=== PATIENT | male | born 1975 | race Caucasian/White ===

== ENCOUNTER 2016-09-06 10:17 | Emergency (ER) | payer SELFPAY ==
[~2016-09-06] VITALS: Ht 185.4 cm; Wt 158.8 kg
[2016-09-06] MEDS ORDERED: TETANUS,DIPTH,PERTUSS P/F (BOOSTRIX) 0.5 ML VIAL IM ONE (11:00)
--- NOTE | 2016-09-06 11:40 | Diagnostic Imaging Report ---
INDICATION: Fall with right hand pain. AP, oblique, and lateral views of the right hand are obtained. No fracture or acute bony abnormality is seen. A radiopaque BB marker was placed over the location of previous soft tissue laceration. Otherwise there is no foreign body seen. Joint spaces are unremarkable. There is no destructive bony lesion. IMPRESSION: Negative right hand. Dictated by: Dictated on workstation # [id number]
[2016-09-06] MEDS ORDERED: LIDOCAINE 1% INJ 20 ML (XYLOCAINE) VIAL INJ ONE (11:45)
[2016-09-06] MEDS ORDERED: KETOROLAC 30 MG/ML VIAL IVP ONE (12:15)
[2016-09-06] MEDS ORDERED: CLINDAMYCIN 900 MG/50 ML IVPB 50 ML IV ONE (12:15)
[2016-09-06 12:19] LABS: BASOPHILS % (AUTO) 0 % (0-10); EOSINOPHILS # (AUTO) 0.2 10^3/uL (0.0-0.3); EOSINOPHILS % (AUTO) 2 % (0-10); LYMPHOCYTES # (AUTO) 2.4 X 10^3 (1.0-4.0); LYMPHOCYTES % (AUTO) 20 % (12-44); MEAN CORPUSCULAR HEMOGLOBIN 31 PG (25-34); MEAN CORPUSCULAR HGB CONC 36 G/DL (32-36); MEAN CORPUSCULAR VOLUME 86 FL (80-99); MEAN PLATELET VOLUME 11.3 FL (7.4-10.4); MONOCYTES # (AUTO) 0.7 X 10^3 (0.0-1.0); MONOCYTES % (AUTO) 6 % (0-12); NEUTROPHILS # (AUTO) 8.8 X 10^3 (1.8-7.8); NEUTROPHILS % (AUTO) 72 % (42-75); PLATELET COUNT 188 10^3/uL (130-400); RED CELL DISTRIBUTION WIDTH 12.8 % (10.0-14.5); WHITE BLOOD COUNT 12.2 10^3/uL (4.3-11.0)
[2016-09-06 12:37] LABS: ANION GAP 15 MMOL/L (5-14); BLOOD UREA NITROGEN 15 MG/DL (7-18); BUN/CREATININE RATIO 17; CALCIUM 9.9 MG/DL (8.5-10.1); CARBON DIOXIDE 23 MMOL/L (21-32); CHLORIDE 98 MMOL/L (98-107); CREATININE SERUM 0.88 MG/DL (0.60-1.30); GFR ESTIMATED > 60; GLUCOSE 272 MG/DL (70-105); POTASSIUM 4.5 MMOL/L (3.6-5.0); SODIUM 136 MMOL/L (135-145); hs C REACTIVE PROTEIN 0.88 MG/DL (0.00-0.50)
--- NOTE | 2016-09-06 13:12 | ED Upper Extremity ---
General Chief Complaint: Upper Extremity Stated Complaint: RIGHT HAND/PALM PAIN/KNOT Nursing Triage Note: Pt fell on a stair and landed on right hand over Xmas. 1 week later he noticed increased pain/swelling to right hand. Nursing Sepsis Screen: No Definite Risk Source: patient Exam Limitations: no limitations History of Present Illness Time seen by provider: 10:54 Initial Comments This 41-year-old gentleman presents to the emergency room with pain, swelling, and redness of the proximal right palmar region that has worsened over the last couple of days. He fell on stairs injuring his right hand around [place] time. The wound seemed to be healing fairly well until recent days. He has apparent abscess in this area. He denies any fever. There is stiffness and pain extending beyond the area of initial injury. 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 Allergies and Home Medications Allergies Coded Allergies: No Known Drug Allergies (Unverified , 09/06/16) Home Medications Hydrocodone/Acetaminophen 1 Each Tablet #14 1 EACH PO Q4H PRN PRN PAIN Prescribed by: SHERYL VICTOR on 09/07/16 1322 Metformin HCl 500 Mg Tablet #30 500 MG PO DAILY Take with your largest meal of the day Prescribed by: DANDY LEON on 09/06/16 1313 Minocycline HCl 100 Mg Capsule #10 100 MG PO BID Prescribed by: SHERYL VICTOR on 09/07/16 1322 Sulfamethoxazole/Trimethoprim 1 Each Tablet #30 1 EACH PO TID Pharmacist: Increased frequency due to patient's stature and location of infection Prescribed by: DANDY LEON on 09/06/16 1313 Constitutional: no symptoms reported EENTM: see HPI Respiratory: no symptoms reported Cardiovascular: no symptoms reported Gastrointestinal: no symptoms reported Genitourinary: no symptoms reported Musculoskeletal: see HPI Skin: see HPI Psychiatric/Neurological: No Symptoms Reported Past Qqytwpl-Clqpjt-Gugmwd Hx Patient Social History Alcohol Use: Denies Use Recreational Drug Use: No Smoking Status: Current Everyday Smoker Recent Foreign Travel: No Contact w/Someone Who Travel: No Recent Infectious Disease Expo: No Recent Hopitalizations: No Physical Abuse Screen: No Sexual Abuse: No Immunizations Up To Date Tetanus Booster (TDap): Unknown Surgeries HX Surgeries: No Respiratory Hx Respiratory Disorders: No Cardiovascular Hx Cardiac Disorders: No Neurological Hx Neurological Disorders: No Reproductive System Hx Reproductive Disorders: No Genitourinary Hx Genitourinary Disorders: No Gastrointestinal Hx Gastrointestinal Disorders: No Musculoskeletal Hx Musculoskeletal Disorders: No Endocrine Hx Endocrine Disorders: No HEENT HX ENT Disorders: No Cancer Hx Cancer: No Psychosocial Hx Psychiatric Problems: No Integumentary HX Skin/Integumentary Disorder: No Blood Transfusions Hx Blood Disorders: No Physical Exam Vital Signs Vital Sign - Last 12Hours 09/06/16 10:56 Temp 98.6 Pulse 70 Resp 16 B/P 173/104 Pulse Ox 98 Capillary Refill : Less Than 3 Seconds General Appearance: WD/WN mild distress HEENT: PERRL/EOMI normal ENT inspection pharynx normal Neck: normal inspection Cardiovascular: regular rate, rhythm no edema no murmur Respiratory: lungs clear normal breath sounds no respiratory distress no accessory muscle use Gastrointestinal: normal bowel sounds Wrist: Yes normal inspection, Yes limited ROM Hand: Right (There is a healing scar on the proximal half of the palmar surface. Just proximal to that is a swollen, erythematous, indurated, and tender region measuring about 2 x 3 cm. It does appear to have a fluctuant center. 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 1 cm incision was made over the abscess taking great care to avoid injuring deeper structures. Initially, no purulent material returned. Wound was then anesthetized with lidocaine and the incision was further and explored with hemostats and a blunt fashion. Purulent material then returned. The surrounding tissue was milked toward the incision returning a moderate amount of purulent material streaked with serosanguineous fluid. Wound culture was obtained. A small wick of packing was placed in the wound to keep it open. Overall the patient tolerated the procedure well. Progress/Results/Core Measures Results/Orders Lab Results Laboratory Tests Test 09/06/16 12:15 Range/Units Anion Gap 15 H 5-14 MMOL/L BUN/Creatinine Ratio 17 Basophils # (Auto) 0.0 0.0-0.1 10^3/uL Basophils (%) (Auto) 0 0-10 % Blood Urea Nitrogen 15 7-18 MG/DL C-Reactive Protein High Sensitivity 0.88 H 0.00-0.50 MG/DL Calcium Level 9.9 8.5-10.1 MG/DL Carbon Dioxide Level 23 21-32 MMOL/L Chloride Level 98 98-107 MMOL/L Creatinine 0.88 0.60-1.30 MG/DL Eosinophils # (Auto) 0.2 0.0-0.3 10^3/uL Eosinophils (%) (Auto) 2 0-10 % Estimat Glomerular Filtration Rate > 60 Glucose Level 272 H 70-105 MG/DL Hematocrit 52 40-54 % Hemoglobin 18.8 H 13.3-17.7 G/DL Hemoglobin A1c 10.2 H 4.5-6.2 % Lymphocytes # (Auto) 2.4 1.0-4.0 X 10^3 Lymphocytes (%) (Auto) 20 12-44 % Mean Corpuscular Hemoglobin 31 25-34 PG Mean Corpuscular Hemoglobin Concent 36 32-36 G/DL Mean Corpuscular Volume 86 80-99 FL Mean Platelet Volume 11.3 H 7.4-10.4 FL Monocytes # (Auto) 0.7 0.0-1.0 X 10^3 Monocytes (%) (Auto) 6 0-12 % Neutrophils # (Auto) 8.8 H 1.8-7.8 X 10^3 Neutrophils (%) (Auto) 72 42-75 % Platelet Count 188 130-400 10^3/uL Potassium Level 4.5 3.6-5.0 MMOL/L Red Blood Count 6.00 H 4.35-5.85 10^6/uL Red Cell Distribution Width 12.8 10.0-14.5 % Sodium Level 136 135-145 MMOL/L White Blood Count 12.2 H 4.3-11.0 10^3/uL Micro Results Microbiology 09/06/16 Gram Stain - Final, Resulted 09/06/16 Wound Culture - Preliminary, Resulted Staphylococcus Aureus My Orders Orders-DANDY ROY MD Basic Metabolic Panel (09/06/16 10:59) Cbc With Automated Diff (09/06/16 10:59) Hs C Reactive Protein (09/06/16 10:59) Saline Lock/Iv-Start (09/06/16 10:59) Dipht,Pertuss(Acell),Tet Adult (Boostrix (09/06/16 11:00) Wound Culture (09/06/16 10:59) Hand, Right, 3 Views (09/06/16 11:01) Lidocaine 1% Injection (Xylocaine 1% Inj (09/06/16 11:45) Clindamycin 900 Mg/50 Ml Ivpb (Cleocin P (09/06/16 12:15) Ketorolac Injection (Toradol Injection) (09/06/16 12:15) Hemoglobin A1c (09/06/16 13:16) Medications Given in ED Vital Signs/I&O Blood Pressure Mean: 127 Progress Note : Progress Note Bedside ultrasound revealed a pocket with complex fluid collection at the site of suspected abscess. Patient consents to incision and drainage. Skin was very thick and indurated. Local anesthetic would likely be difficult and not very helpful. Patient consents to I and D without anesthesia. Skin was prepped with Betadine and a 1 cm incision was made over the abscess with great care to avoid injuring the prescription. Patient had immediate relief of pressure after incision. There was initially no return of purulent material. Pain then became greater than patient expected. Wound was then anesthetized with lidocaine. The incision was then bluntly explored with a hemostat which returned a moderate amount of purulent material streaked in serosanguineous fluid. The surrounding tissue was milked toward the incision until no further purulent material could be expressed. Baseline labs were obtained. Patient was found to be significantly hyperglycemic and likely diabetic. He was started on metformin and instructed to consume a very low carb diet. Wound culture was obtained. A dose of IV clindamycin was administered. Hand x-ray was obtained to ensure no radiopaque foreign bodies or bony involvement. Diagnostic Imaging Diagonstic Imaging: Xray Plain Films/CT/US/NM/MRI: hand Comments Hand x-ray was viewed by me and report reviewed. See report below: NAME: FE DANIELLE [facility] REC#: [id number] PT STATUS: DEP ER : 1975 PHYSICIAN: DANDY ROY MD ADMIT DATE: 09/06/16/ER Signed Date of Exam:09/06/16 HAND, RIGHT, 3 VIEWS INDICATION: Fall with right hand pain. AP, oblique, and lateral views of the right hand are obtained. No fracture or acute bony abnormality is seen. A radiopaque BB marker was placed over the location of previous soft tissue laceration. Otherwise there is no foreign body seen. Joint spaces are unremarkable. There is no destructive bony lesion. IMPRESSION: Negative right hand. Dictated by: Dictated on workstation # [id number] Dict: 09/06/16 1137 Trans: 09/06/16 1352 [id number] Interpreted by: YADIRA DILLON MD Electronically signed by: YADIRA DILLON MD 09/06/16 1355 Departure Impression Impression: Primary Impression: Abscess of right hand Additional Impressions: Encounter for incision and drainage procedure Hyperglycemia Disposition: HOME, SELF-CARE Condition: Improved Departure-Patient Inst. Decision time for Depature: 12:30 Referrals: NO,LOCAL PHYSICIAN (PCP/Family) Primary Care Physician Patient Instructions: ABSCESS, Abscess Incision and Drainage, Diabetes Type 2 ( DC) Add. Discharge Instructions: Keep your right hand elevated to the level of your heart as much as possible. Change dressing as often as needed when soiled. Change dressing at least once daily. Return to the emergency room between 11 a.m. and 11 p.m. tomorrow September 07 to have your wound checked by Sheryl Victor. There will be no charge for this visit. Return to the emergency room if symptoms worsen such as increasing redness up the arm, increasing pain, fever, etc. The [facility] should be contacting you for a follow-up appointment. If you do not hear from them by early tomorrow morning, please call for an appointment at [phone]. Keep your wound clean and dry except for normal showering. Keep the wound covered at work. A work note is provided with restrictions. You may take ibuprofen up to 800 mg every 8 hours as needed for pain. Add Tylenol up to 1000 g every 6 hours as needed for additional pain relief. Eat a low carbohydrate diet. You're being provided a prescription for metformin to help reduce blood sugars. Please take it before your largest meal of the day. Complete the entire course of your antibiotics as prescribed. All discharge instructions reviewed with patient and/or family. Voiced understanding. Scripts Metformin HCl 500 Mg [id number] Mg PO DAILY #30 TAB Take with your largest meal of the day Prov:DANDY ROY MD 09/06/16 Sulfamethoxazole/Trimethoprim (Bactrim Ds Tablet)1 Each Tablet1 Each PO TID #30 TAB Pharmacist: Increased frequency due to patient's stature and location of infection Prov:DANDY ROY MD 09/06/16 Work/School Note: Work Release Form Date Seen in the Emergency Department: Sep 06, 2016 Return to Work: Sep 07, 2016 Other Restrictions Listed Below: No use of right hand until wound stops draining. Keep covered until healed Copy Copies To 1: JEANNETTE TROTTER MD, JOSHUA T MD Sep 06, 2016 13:12
[2016-09-06] MEDS ORDERED: METF500T4 PO (13:13)
[2016-09-06] MEDS ORDERED: SULF1TAB35 PO (13:13)
[2016-09-06 13:31] VITALS: BP 162/90
[2016-09-07] MEDS ORDERED: MINO100C2 PO (13:22)
[2016-09-07] MEDS ORDERED: HYDR-3812 PO (13:22)
== END 2016-09-06 13:31 | disposition home or self-care (01) ==
LOC: ER 10:20
DX: L02.511 Cutaneous abscess of right hand (principal); B95.61 Methicillin susceptible Staphylococcus aureus infection as the cause of diseases classified elsewhere; Z23 Encounter for immunization; R73.9 Hyperglycemia, unspecified; F17.210 Nicotine dependence, cigarettes, uncomplicated
CPT/HCPCS: 10060; 36415; 73130; 80048; 83036; 85025; 86141; 87070; 87077; 87186; 87205; 90471; 90715; 96365; 96375

== ENCOUNTER 2016-09-07 11:16 | Emergency (ER) | payer SELFPAY ==
[~2016-09-07] VITALS: Ht 185.4 cm; Wt 158.8 kg
[~2016-09-07 11:16] MED LIST: METF500T4 PO; SULF1TAB35 PO
--- OUTSIDE RECORDS SUMMARY | 2016-09-07 11:22 | XMS REPORT | Continuity of Care Document ---
Author Author [facility] Organization [facility] Address Unknown Phone Unavailable Care Team Providers Care Associate Juvenile Court Judge Name Role Phone NO, LOCAL PHYSICIAN PCP Unavailable Insurance Providers Payer Name Policy Number Subscriber Name Relationship Self Pay Robin Danielle 18 Self / Same As Patient Advance Directives Directive Response Recorded Date/Time Advance Directives No 09/06/16 11:02am Resuscitation Status Full Code 09/06/16 11:02am Chief Complaint and Reason for Visit Chief Complaint Upper Extremity Reason for Visit Encounter for incision and drainage procedure Hyperglycemia Abscess of right hand Problems Active Problems Medical Problem Onset Date Status Abscess of right hand Unknown Acute Encounter for incision and drainage procedure Unknown Acute Hyperglycemia Unknown Acute Medications Current Home Medications Medication Dose Units Route Directions Days/Qty Instructions Start Date Sulfamethoxazole/Trimethoprim 1 Each 1 Each Oral Three Times A Day 30 Pharmacist: Increased frequency due to patient's stature and location of infection 09/06/16 Metformin Hcl 500 Mg 500 Mg Oral Daily 30 Take with your largest meal of the day 09/06/16 Social History Social History Problem Response Recorded Date/Time Alcohol Use Denies Use 09/06/2016 11:02am Recreational Drug Use No 09/06/2016 11:02am Recent Foreign Travel No 09/06/2016 10:56am Recent Infectious Disease Exposure No 09/06/2016 10:56am Hospitalization with Isolation Denies 09/06/2016 10:56am Smoking Status Current Everyday Smoker 09/06/2016 11:02am Recent Hopitalizations No 09/06/2016 11:02am Hospitalization with Isolation Denies 09/06/2016 10:56am Query Response Start Date Stop Date Smoking Status Current Everyday Smoker Hospital Discharge Instructions No hospital discharge instructions. Plan of Care Discharge Date 09/06/16 1:31pm Disposition 01 HOME, SELF-CARE Condition at Discharge Improved Instructions/Education Provided ABSCESS Abscess Incision and Drainage Diabetes Type 2 (DC) Forms Provided Work Release Form Prescriptions See Medication Section Referrals NO,LOCAL PHYSICIAN - Primary Care Physician Additional Instructions/Education Keep your right hand elevated to the level of your heart as much as possible. Change dressing as often as needed when soiled. Change dressing at least once daily. Return to the emergency room between 11 a.m. and 11 p.m. tomorrow September 07 to have your wound checked by Sushila Victor. There will be no charge for this visit. Return to the emergency room if symptoms worsen such as increasing redness up the arm, increasing pain, fever, etc. The [facility] should be contacting you for a follow-up appointment. If you do not hear from them by early tomorrow morning, please call for an appointment at [phone]. Keep your wound clean and dry except for normal showering. Keep the wound covered at work. A work note is provided with restrictions. You may take ibuprofen up to 800 mg every 8 hours as needed for pain. Add Tylenol up to 1000 g every 6 hours as needed for additional pain relief. Eat a low carbohydrate diet. You're being provided a prescription for metformin to help reduce blood sugars. Please take it before your largest meal of the day. Complete the entire course of your antibiotics as prescribed. All discharge instructions reviewed with patient and/or family. Voiced understanding. Functional Status No functional status results. Allergies, Adverse Reactions, Alerts No known allergies. Immunizations Name Given Type DTaP-Tetanus, Dipth, Pertuss P/F (Boostrix) 09/06/16 Administered Vital Signs Acute Vital Signs Vital Response Date/Time Temperature (Fahrenheit) 98.6 degrees F (97.6 - 99.5) 09/06/2016 12:21pm Temperature (Calculated Celsius) 37.85088 degrees C (36.4 - 37.5) 09/06/2016 12:21pm Temperature Source Temporal 09/06/2016 12:21pm Pulse Rate (adult) 72 bpm (60 - 90) 09/06/2016 1:31pm Respiratory Rate 16 bpm (12 - 24) 09/06/2016 1:31pm O2 Sat by Pulse Oximetry 98 % (88 - 100) 09/06/2016 1:31pm Blood Pressure 162/90 mm Hg 09/06/2016 1:31pm Blood Pressure Mean 127 mm Hg 09/06/2016 10:56am Pain Numeric Pain Scale 3 09/06/2016 1:31pm Height (Feet) 6 feet 09/06/2016 10:56am Height (Inches) 1 inches 09/06/2016 10:56am Height (Calculated Centimeters) 185.805228 cm 09/06/2016 10:56am Weight (Pounds) 350 pounds 09/06/2016 10:56am Weight (Calculated Kilograms) 158.803502 kilograms 09/06/2016 10:56am Capillary Refill Capillary Refill Less Than 3 Seconds 09/06/2016 10:56am Height 6 ft 1 in Weight 350 lb Body Mass Index 46.2 kg/m^2 Results Laboratory Results Test Name Result Units Flags Reference Collection Date/Time Result Date/ Time Comments White Blood Count 12.2 10^3/uL H 4.3-11.0 09/06/2016 12:15pm 09/06/2016 12:22pm Red Blood Count 6.00 10^6/uL H 4.35-5.85 09/06/2016 12:15pm 09/06/2016 12 :22pm Hemoglobin 18.8 G/DL H 13.3-17.7 09/06/2016 12:15pm 09/06/2016 12:22pm Hematocrit 52 % 40-54 09/06/2016 12:15pm 09/06/2016 12:22pm Mean Corpuscular Volume 86 FL 80-99 09/06/2016 12:15pm 09/06/2016 12: 22pm Mean Corpuscular Hemoglobin 31 PG 25-34 09/06/2016 12:15pm 09/06/2016 12:22pm Mean Corpuscular Hemoglobin Concent 36 G/DL 32-36 09/06/2016 12:15pm 12:22pm Red Cell Distribution Width 12.8 % 10.0-14.5 09/06/2016 12:15pm 2016 12:22pm Platelet Count 188 10^3/uL 130-400 09/06/2016 12:15pm 09/06/2016 12: 22pm Mean Platelet Volume 11.3 FL H 7.4-10.4 09/06/2016 12:15pm 09/06/2016 12: 22pm Neutrophils (%) (Auto) 72 % 42-75 09/06/2016 12:15pm 09/06/2016 12: 22pm Lymphocytes (%) (Auto) 20 % 12-44 09/06/2016 12:15pm 09/06/2016 12: 22pm Monocytes (%) (Auto) 6 % 0-12 09/06/2016 12:15pm 09/06/2016 12:22pm Eosinophils (%) (Auto) 2 % 0-10 09/06/2016 12:15pm 09/06/2016 12:22pm Basophils (%) (Auto) 0 % 0-10 09/06/2016 12:1509/06/2016 12:22pm Neutrophils # (Auto) 8.8 X 10^3 H 1.8-7.8 09/06/2016 12:15pm 09/06/2016 12:22pm Lymphocytes # (Auto) 2.4 X 10^3 1.0-4.0 09/06/2016 12:15pm 09/06/2016 12:22pm Monocytes # (Auto) 0.7 X 10^3 0.0-1.0 09/06/2016 12:15pm 09/06/2016 12: 22pm Eosinophils # (Auto) 0.2 10^3/uL 0.0-0.3 09/06/2016 12:15pm 09/06/2016 12:22pm Basophils # (Auto) 0.0 10^3/uL 0.0-0.1 09/06/2016 12:15pm 09/06/2016 12 :22pm Sodium Level 136 MMOL/L 135-145 09/06/2016 12:15pm 09/06/2016 12:43pm Potassium Level 4.5 MMOL/L 3.6-5.0 09/06/2016 12:15pm 09/06/2016 12: 43pm Chloride Level 98 MMOL/L 98-107 09/06/2016 12:15pm 09/06/2016 12:43pm Carbon Dioxide Level 23 MMOL/L 21-32 09/06/2016 12:15pm 09/06/2016 12: 43pm Anion Gap 15 MMOL/L H 5-14 09/06/2016 12:15pm 09/06/2016 12:43pm Blood Urea Nitrogen 15 MG/DL 7-18 09/06/2016 12:15pm 09/06/2016 12: 43pm Creatinine 0.88 MG/DL 0.60-1.30 09/06/2016 12:15pm 09/06/2016 12:43pm BUN/Creatinine Ratio 09/06/2016 12:15pm 09/06/2016 12:43pm Estimat Glomerular Filtration Rate > 60 09/06/2016 12:15pm 2016 12:43pm GFR INTERPRETIVE DATA UNITS FOR ESTIMATED GFR (eGFR): mL/min/1.73 M2 REFERENCE RANGE FOR ESTIMATED GFR (eGFR) eGFR NORMAL eGFR >60 MODERATELY DECREASED eGFR 30-59 SEVERLY DECREASED eGFR 15-29 KIDNEY FAILURE <15 (OR DIALYSIS) Glucose Level 272 MG/DL H 70-105 09/06/2016 12:15pm 09/06/2016 12:43pm Calcium Level 9.9 MG/DL 8.5-10.1 09/06/2016 12:15pm 09/06/2016 12:43pm C-Reactive Protein High Sensitivity 0.88 MG/DL H 0.00-0.50 09/06/2016 12: 15pm 09/06/2016 12:43pm Procedures No known history of procedures. Encounters Encounter Location Arrival/Admit Date Discharge/Depart Date Attending Provider Departed Emergency Room [facility] 09/06/16 10:20am 1:31pm DANDY ROY MD Recent Diagnosis
--- NOTE | 2016-09-07 11:50 | ED Suture Removal/Wound Check ---
Suture/Wound Re-check Suture Removal/Wound Recheck : Progress 41-year-old male patient presents to the emergency department for wound check. Patient was seen yesterday by Dr. Silva with incision and drainage performed of the right hand. Patient reports last night he did become diaphoretic with nausea and feeling lightheaded at [employer]. Today reports alternating chills and sweats. Physical Exam Vital Signs Vital Sign - Last 12Hours 09/07/16 11:22 Temp 98.9 Pulse 75 Resp 20 B/P 168/99 Pulse Ox 98 O2 Delivery Room Air Capillary Refill : General Appearance: WD/WN no apparent distress Extremities: normal capillary refill swelling (continued swelling of the right hand with ttp. ) other (2 cm incision rt proximal palm w/o active drainage or bleeding. Packing removed at the time of exam. erythema of the rt palm. ) Neurologic/Psychiatric: alert normal mood/affect oriented x 3 Skin: normal color warm/dry other (2 cm incision rt proximal palm w/o active drainage or bleeding. Packing removed at the time of exam. erythema of the rt palm. ) Skin Problem Location: upper extremities (rt hand) Skin Problem Character: erythema, swelling, tenderness, warm Departure Communication Progress Notes All laboratory findings discussed with the patient. Patient was given 900 mg of Cleocin IV prior to discharge. Discharge to home with addition of minocycline. Patient instructed to continue Bactrim. Patient also given a prescription for hydrocodone. All return precautions were discussed with the patient as described in the discharge instructions of this report. Patient voices understanding and agrees with the treatment plan. Impression Impression: Primary Impression: Cellulitis and abscess of hand, except fingers and thumb Disposition: 01 HOME, SELF-CARE Condition: Improved Departure-Patient Inst. Decision time for Depature: 13:20 Referrals: NO,LOCAL PHYSICIAN (PCP) Primary Care Physician [facility] [place] Patient Instructions: Cellulitis (Skin Infection), Adult (DC), Skin Abscess Add. Discharge Instructions: All discharge instructions reviewed with patient and/or family. Voiced understanding. Medications as instructed. Ibuprofen 800 mg every 8 hours as needed for pain. Elevate the right hand above the level of the heart as much as possible. Shower with antibacterial soap. Cover wound with gauze and tape. Follow-up with [facility] for recheck in the next 2-3 days. If unable to be seen by [facility], return to the emergency department for wound check. Return to the emergency department for worsened pain, redness, drainage, fever, or any other concerns. 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 SHERYL GAYLE Sep 07, 2016 11:50
[2016-09-07] MEDS ORDERED: NS IV 1000 ML 1,000 ML IV ONE (12:01)
[2016-09-07] MEDS ORDERED: KETOROLAC 30 MG/ML VIAL IVP STA (12:01)
[2016-09-07 12:27] LABS: BASOPHILS % (AUTO) 0 % (0-10); EOSINOPHILS # (AUTO) 0.2 10^3/uL (0.0-0.3); EOSINOPHILS % (AUTO) 2 % (0-10); LYMPHOCYTES # (AUTO) 2.3 X 10^3 (1.0-4.0); LYMPHOCYTES % (AUTO) 23 % (12-44); MEAN CORPUSCULAR HEMOGLOBIN 31 PG (25-34); MEAN CORPUSCULAR HGB CONC 36 G/DL (32-36); MEAN CORPUSCULAR VOLUME 87 FL (80-99); MEAN PLATELET VOLUME 11.4 FL (7.4-10.4); MONOCYTES # (AUTO) 0.7 X 10^3 (0.0-1.0); MONOCYTES % (AUTO) 7 % (0-12); NEUTROPHILS # (AUTO) 6.8 X 10^3 (1.8-7.8); NEUTROPHILS % (AUTO) 68 % (42-75); PLATELET COUNT 177 10^3/uL (130-400); RED BLOOD COUNT 5.65 10^6/uL (4.35-5.85); RED CELL DISTRIBUTION WIDTH 12.8 % (10.0-14.5)
[2016-09-07 12:42] LABS: ANION GAP 12 MMOL/L (5-14); BLOOD UREA NITROGEN 13 MG/DL (7-18); BUN/CREATININE RATIO 16; CARBON DIOXIDE 26 MMOL/L (21-32); CHLORIDE 100 MMOL/L (98-107); CREATININE SERUM 0.83 MG/DL (0.60-1.30); POTASSIUM 4.5 MMOL/L (3.6-5.0); SODIUM 138 MMOL/L (135-145)
[2016-09-07 12:43] LABS: CALCIUM 9.8 MG/DL (8.5-10.1); GFR ESTIMATED > 60; GLUCOSE 264 MG/DL (70-105); hs C REACTIVE PROTEIN 4.13 MG/DL (0.00-0.50)
[2016-09-07] MEDS ORDERED: CLINDAMYCIN 900 MG/50 ML IVPB 50 ML IV ONE (13:00)
[2016-09-07] MEDS ORDERED: MINO100C2 PO (13:22)
[2016-09-07] MEDS ORDERED: HYDR-3812 PO (13:22)
[2016-09-07 13:50] VITALS: BP 165/100
== END 2016-09-07 13:50 | disposition home or self-care (01) ==
LOC: EDUNIT# 11:16 → ER 11:18
DX: L02.511 Cutaneous abscess of right hand (principal)
CPT/HCPCS: 36415; 80048; 83605; 85025; 86141; 87040; 96361; 96365; 96375